=== PATIENT | female | born 1955 | race African-American/Black ===

== ENCOUNTER 2020-01-06 07:10 | Observation (INO) | payer MEDICARE, MEDICAID ==
[2020-01-04 11:45] LABS: BASOPHILS 0.5 % (0-2); EOSINOPHILS 1.2 % (0-7); HEMATOCRIT 33.1 % (36.0-48.0); HEMOGLOBIN 10.3 g/dL (12-16); IMMATURE GRANULOCYTES 0.2 % (0-5); LYMPHOCYTES 45.5 % (15-50); MCH 26.4 pg (26.0-34.0); MCHC 31.1 g/dL (31.0-37.0); MCV 84.9 fL (80.0-100.0); MEAN PLATELET VOLUME 8.8 fL (7.4-10.4); MONOCYTES 9.1 % (2-11); NEUTROPHILS 43.5 % (40-80); PLATELET COUNT 263 10x3/uL (130-400); WBC 6.6 10x3/uL (4.8-10.8)
[2020-01-04 11:57] LABS: ANION GAP 8.4 mmol/L (8-16); CALCIUM 9.9 mg/dL (8.5-10.1); CARBON DIOXIDE 32.5 mmol/L (21.0-32.0); CREATININE - SERUM 0.9 mg/dL (0.6-1.3); POTASSIUM - SERUM 3.9 mmol/L (3.5-5.1)
[2020-01-04 12:05] LABS: APTT 27.8 SECONDS (22.8-39.4); INR 1.02 (0.85-1.17); PROTIME 13.4 SECONDS (11.6-15.0)
[2020-01-06] VITALS (10 sets, daily range): BP systolic 120–158; BP diastolic 46–77; Ht 157.5 cm; Wt 83.6 kg
[~2020-01-06] VITALS: Ht 157.5 cm; Wt 83.6 kg
[~2020-01-06 07:10] MED LIST: CHLORTHALIDONE25 MG PO; HYDROCODON-ACE1 EA10 PO; PENICILLIN V P500 MG PO; TENORMIN100 MG PO; ZOCOR40 MG PO
--- NOTE | 2020-01-06 09:24 | NUR ---
0920-block per anesthesia. monitors established. alarms audible. o2 at 2l per nasal cannula. o2 sat 100% arouses easily. family member at bedside.
--- NOTE | 2020-01-06 12:56 | NUR ---
DRAINED BOTH CHANO DRAINS @1240 5CC IN #1 DRAIN AND 45CC IN #2 DRAIN WITH LARGE CLOT REMOVED
--- NOTE | 2020-01-06 13:30 | NUR ---
RECIEVED PATIENT FROM RECOVERY. VSS. O2 SAT 94 ON ROOM AIR.
--- NOTE | 2020-01-06 13:40 | NUR ---
PATIENT WITH CHANO DRAINS TIMES 2. MELISSA WRAP AROUND CHEST, UNABLE TO ASSESS DRESSING. NO DRAINAGE NOTED ON MELISSA WRAP.
--- NOTE | 2020-01-06 14:15 | NUR ---
ROOM CHECK. VSS. O2 SAT RANGES BETWEEN 92-95% ON ROOM AIR. EMPTIED CHANO DRAINS. HCANO #1 35CC OF RED BLOOD. NO CLOTS NOTED. CHANO# 2 20CC OF RED BLOOD. NO CLOTS NOTED. PATIENT STATES SHE IS COLD. WARM BLANKET PROVIDED TO PATIENT. DENIES FURTHER NEEDS. JUST WANTS TO SLEEP.
--- NOTE | 2020-01-06 14:25 | NUR ---
PATIENTS O2 RANGES 90-94 ON ROOM AIR. WHEN PATIENT SLEEPS WILL CONSISTENTALY STAY 90-92% ON ROOM AIR. 2L NC APPLIED TO PATIENT. PATIENT O2 SAT IS NOW STAYING AT 63%. WILL CONTINUE TO MONITOR. SCD'S ON BILATERALLY, CALL LIGHT IN REACH, SIDE RAILS UP X 2. PATIENT SLEEPING AT THIS TIME.
--- NOTE | 2020-01-06 15:01 | NUR ---
ROOM CHECK. PATIENT SLEEPING. EASY TO WAKE. O2 SAT UP TO 98% ON 2L NC. PATIENT DENIES NEEDS AT THIS TIME. JUST WANTS TO SLEEP. VSS. CALL LIGHT IN REACH, SIDE RAILS UP X2.
--- NOTE | 2020-01-06 15:32 | NUR ---
ROOM CHECK. PATIENT SLEEPING. EASY TO WAKE. WILL OPEN EYES AND TALK. PATIENT STATES SHE IS DOING GOOD AND DOES NOT NEED ANYTHING. DENIES PAIN. STATES IS JUST TIRED. O2 SAT 98% ON 2L NC. SCD'S ON BILAT, CALL LIGHT IN REACH, SIDE RAILS UP X2.
--- NOTE | 2020-01-06 16:00 | NUR ---
ROOM CHECK. PATIENT REQUESTING ICE WATER. ICE WATER PROVIDED. ASSISTED PAITENT WITH DRINKING. SHE DENIES PAIN AT THIS TIME. SCD'S ON BILATERAL, CALL LIGHT IN REACH, SIDE RAILS UP X2.
--- NOTE | 2020-01-06 16:40 | NUR ---
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 PATIENT UP WITH ASSIST X2. SHE DID NOT FEEL SHE COULD MAKE IT TO THE BATHROOM BEFORE SHE WENT. BEDSIDE COMMODE PROVIDED FOR PT. PATIENT VOIDED 600CC OF CLEAR YELLOW URINE. PATIENT BACK TO BED WITH ASSIST X1. PATIENT SITTING UP IN BED EATING AT THIS TIME. DENIES NEEDS. CALL LIGHT IN REACH, SIDE RAILS UP X2, SCD'S ON BILAT.
--- NOTE | 2020-01-06 17:20 | NUR ---
ROOM CHECK. PATIENT SITTING UP IN BED EATING. RATES PAIN 5/10. NARCO GIVEN PER ORDER. PATIENT STATES LEFT CHEST IS STARTING TO ACHE. DENIES NEEDS AT THIS TIME. SCD'S ON BILAT, CALL LIGHT IN REACH, SIDE RAILS UP X2.
--- NOTE | 2020-01-06 18:05 | NUR ---
ROOM CHECK. PATIENT SITTING UP IN BED. FINISHED EATING. RATES PAIN 3/10 STATES IT FEELS BETTER. VSS. INCENTIVE SPIROMETER GIVEN TO PATIENT AND EDUCATION PROVIDED. PATIENT ABLE TO GET TO 1250. GOAL SET AT 1500. PATIENT VERBALIZED UNDERSTANDING AND AGREEMENT. DENIES NEEDS AT THIS TIME. CALL LIGHT IN REACH, SIDE RAILS UP X2. SCD'S ON BILAT.
--- NOTE | 2020-01-06 18:32 | NUR ---
ROOM CHECK. CHANO DRAINS EMPTIED. CHANO #1 30 CC BLOODLY DRAINAGE , NO CLOTS NOTED. CHANO #2 20CC OF BLOODY DRAINAGE, NO CLOTS NOTED. PATIENT CURRETNLY SITTING UP IN BED TALKING ON THE PHONE. DENIES NEEDS AT THIS TIME. CALL LIGHT IN REACH, SIDE RAILS UP X2, SCD'S ON BILAT.
--- NOTE | 2020-01-06 19:00 | NUR ---
RECEIVED SHIFT REPORT FROM TONY HERNANDEZ RN
--- NOTE | 2020-01-06 19:10 | NUR ---
ASSESSMENT PER FLOW SHEET, VS OBTAINED, IV IN RIGHT HAND INTACT WITH NO REDNESS OR EDEMA INFUSING VIA PUMP LR AT 30ML/HR, CHEST DRESSING INTACT WITH NO DRAINAGE, CHANO DRAINS COMPRESSED, PT REPORTS FLATUS, PT INST ON AND DEMONSTRATED I.S. WITH GOOD EFFORT, SMALL SPLINT PILLOW PROVIDED, PT REPORTS FLATUS, PT INST TO USE CALL LIGHT WHEN NEEDING TO GET UP TO VOID, PT VERBALIZES UNDERSTANDING, RATES PAIN 2/10, STATES "NOTHING BAD, PT DENIES NEEDS AT THIS TIME, BED IN LOW POSITION, SIDE RAILS X 2, CALL LIGHT IN REACH
--- NOTE | 2020-01-06 19:29 | NUR ---
PT TALKING ON TELEPHONE, BAG OF NS HUNG PER MD ORDERS, SEE EMAR
--- NOTE | 2020-01-06 20:12 | NUR ---
PT TALKING ON PHONE, INFORMED PT THAT I WILL BE BACK AROUND 9PM TO ADM HER ZOCOR AND I WILL BRING PAIN MED WITH ME IF IT WAS DUE, PT STATES "THAT SOUNDS GOOD", PT DENIES NEEDS AT THIS TIME
--- NOTE | 2020-01-06 21:30 | NUR ---
PT UP TO BR WITH ASSISTANCE, GAIT STEADY, TO BEDSIDE COMMODE, PT VOIDED 500MLS OF CLEAR YELLOW URINE BY SELF WITH NO DIFFICULTY, PT BACK TO BED, CHANO DRAINS EMPTIED, SCD'S RECONNECTED AND WORKING PROPERLY
--- NOTE | 2020-01-06 21:40 | NUR ---
ADM 2100 MEDS PER MD ORDERS, SEE EMAR, PT REQUESTED AND SERVED [place] [employer] [place] [employer] [employer] [place] [employer], PT DENIES FURTHER NEEDS, BED IN LOW POSITION, SIDE RAILS X 2, CALL LIGHT IN REACH
--- NOTE | 2020-01-06 22:30 | NUR ---
PT WATCHING TV, REQUESTED AND HANDED BIBLE FROM BAG, PT RATES PAIN 2/10, DENIES FURTHER NEEDS
[2020-01-07 00:08] VITALS: BP 129/55
--- NOTE | 2020-01-07 00:08 | NUR ---
PT RESTING WITH EYES CLOSED, AROUSES TO SOFT VERBAL STIMULATION, VS OBTAINED, PT RATES PAIN 1-2/10, EMPTIED DRAIN 2, SCD'S CONTINUE ON AND WORKING PROPERLY, PT DENIES NEEDS AT THIS TIME, BED IN LOS POSITION, SIDE RAILS X 2, CALL LIGHT IN REACH
--- NOTE | 2020-01-07 02:21 | NUR ---
PT RESTING WITH EYES CLOSED, RESP QUIET, NO DISTRESS NOTED, LEFT UNDISTURBED AT THIS TIME, SCD'S CONTINUE ON AND WORKING PROPERLY, BED IN LOW POSITION, SIDE RAILS X 2, CALL LIGHT IN REACH
[2020-01-07 04:21] VITALS: BP 115/52
--- NOTE | 2020-01-07 04:21 | NUR ---
PT RESTING WITH EYES CLOSED, AROUSES TO SOFT VERBAL STIMULATION, VS OBTAINED, I&O'S COLLECTED, PT UP TO BEDSIDE COMMODE WITH ASSISTANCE, GAIT STEADY, VOIDED 250 MLS OF LITE YELLOW URINE BY SELF WITH NO DIFFICULTY, PT BACK TO BED, SCD'S RECONNECTED AND WORKING PROPERLY, PT RATES PAIN 12/09, ADM NORCO PO PER MD ORDERS, SEE EMAR, WITH FRESH H20, PT DENIES FURTHER NEEDS
--- NOTE | 2020-01-07 06:24 | NUR ---
PT AWAKE, LAB IN ROOM FOR AM BLOOD DRAW, PT RATES PAIN 5/10, STATES "IT'S COMING DOWN", PT DENIES NEEDS AT THIS TIME
[2020-01-07 06:54] LABS: BASOPHILS 0.1 % (0-2); EOSINOPHILS 0 % (0-7); HEMATOCRIT 27.3 % (36.0-48.0); HEMOGLOBIN 8.4 g/dL (12-16); IMMATURE GRANULOCYTES 0.3 % (0-5); LYMPHOCYTES 21.7 % (15-50); MCH 25.6 pg (26.0-34.0); MCHC 30.8 g/dL (31.0-37.0); MCV 83.2 fL (80.0-100.0); MEAN PLATELET VOLUME 9.4 fL (7.4-10.4); MONOCYTES 6.6 % (2-11); NEUTROPHILS 71.3 % (40-80); PLATELET COUNT 265 10x3/uL (130-400); RBC 3.28 10x6/uL (4.00-5.40); WBC 11.5 10x3/uL (4.8-10.8)
--- NOTE | 2020-01-07 07:00 | NUR ---
SHIFT REPORT TO DAY SHIFT
[2020-01-07 07:09] LABS: ANION GAP 13.7 mmol/L (8-16); CALCIUM 8.1 mg/dL (8.5-10.1); CARBON DIOXIDE 24.2 mmol/L (21.0-32.0); CREATININE - SERUM 1.2 mg/dL (0.6-1.3); POTASSIUM - SERUM 3.9 mmol/L (3.5-5.1)
[2020-01-07 08:39] VITALS: BP 113/54
--- NOTE | 2020-01-07 08:39 | NUR ---
SHIFT ASSESSMENT COMPLETED PER FLOWSHEET. VSS. REFUSED B/P MEDS D/T B/P 113/54. MELISSA WRAP REMAINS CLEAN, DRY, AND INTACT, NO DRAINAGE NOTED. DENIES PAIN AT THIS TIME. CHANO DRAINS BOTH EMPTIED AT THIS TIME, 5 MLS FROM DRAIN 1 AND 10 MLS FROM DRAIN 2 WITH SEROSANGUINOUS DRAINAGE NOTED. BOWELS SOUNDS PRESENT AND ACTIVE X 4 QUADRANTS, REPORTS THAT SHE IS PASSING FLATUS AND VOIDING WITHOUT DIFFICULTY. ORAL CARE DONE PER PT. POC DISCUSSED WITH PT, VERBALIZES UNDERSTANDING AND AGREEMENT DENIES QUESTIONS.
--- NOTE | 2020-01-07 09:37 | NUR ---
ROUNDS MADE. PT SITTING UP IN EDGE OF BED READING BOOK. DENIES PAIN. ICE WATER AND SPRITE PROVIDED PER REQUEST. BED IN LOW POSITION WITH SRUP X2. SCD'S OFF PER PT REQUEST. WILL CONTINUE TO MONITOR.
--- NOTE | 2020-01-07 10:54 | NUR ---
ROUNDS MADE. PT UP TO BR. DENIES NEED FOR ASSISTANCE. DENIES PAIN. WILL CONTINUE TO MONITOR.
[2020-01-07] MEDS ORDERED: HYDROCODON-ACE1 EA10 PO (11:40)
--- NOTE | 2020-01-07 11:45 | NUR ---
CALL LIGHT ANSWERED, PT UP TO BEDSIDE COMMODE AND VOIDS EASILY WITHOUT COMPLAINT. IV D/C AND REMOVED WITH CATH INTACT REQUESTED BY PT. PT STATES THAT DR TESFAYE TOLD HER SHE COULD GO HOME WHEN READY TODAY, SHE UNDERSTANDS THAT D/C TEACHING NEEDS TO BE GONE OVER AND IS CALLING HER DAUGHTER TO SEE WHEN SHE WILL BE AVAILABLE TO COME AND PICK HER UP.
--- NOTE | 2020-01-07 13:36 | NUR ---
REPORT TO Anastacia WAGNER RN
--- NOTE | 2020-01-07 13:44 | NUR ---
NORCO 10/325MG X1 TAB GIVEN PER PT REQUEST FOR PAIN RATED 7/10. PT DENIES FURTHER NEEDS.
--- NOTE | 2020-01-07 14:28 | NUR ---
PAIN REASSESSMENT COMPLETED. PT RATES PAIN 5/10 AND TOLERABLE AT THIS TIME. NO FURTHER NEEDS. LIGHTS DIMMED PER REQUEST.
--- NOTE | 2020-01-07 17:39 | NUR ---
ANTIBIOTICS GIVEN PER ORDERS. PT GETTING UP OOB TO USE BEDSIDE COMMODE. DENIES NEEDING ASSISTANCE WITH AMBULATION. DENIES FURTHER NEEDS.
--- NOTE | 2020-01-07 18:12 | NUR ---
PT SITTING UP IN BED WATCHING TELEVISION. STATES HER DAUGHTER SHOULD BE HERE AROUND 6:30 PM TO PICK HER UP. ADVISED WILL GET D/C PAPERWORK TOGETHER FOR HER.
--- NOTE | 2020-01-07 18:40 | NUR ---
D/C INST EXPLAINED, SIGNED AND WITNESSED. INSTRUCTION ON CHANO DRAIN GIVEN. PT FAMILIAR WITH DRAIN AND DEMONSTRATED HOW TO EMPTY IT. INSTRUCTED PT TO CALL DR TESFAYE'S OFFICE TOMORROW AM TO MAKE A FOLLOW UP APPT. UNDERSTANDING VERBALIZED. NO FURTHER QUESTIONS OR CONCERNS VOICED. PT AWAITING W/C TRANSPORT OFF UNIT.
--- NOTE | 2020-01-09 09:28 | OP ---
PATIENT NAME: ROEL SEBASTIAN MEDICAL RECORD: [id number] :57 LOCATION:[id number] ADMISSION DATE:01/06/20 SURGEON: RICKY TESFAYE MD DATE OF OPERATION: 01/06/2020 PREOPERATIVE DIAGNOSES: 1. Left breast cancer. 2. Hypertension. POSTOPERATIVE DIAGNOSES: 1. Left breast cancer. 2. Hypertension. PROCEDURE: Left modified radical mastectomy. SURGEON: Ricky Tesfaye MD REPORT OF PROCEDURE: The patient's left breast and axilla were prepped and draped in sterile fashion. An ovoid incision was made around the patient's breast transversely incorporating the nipple areolar complex. Using electrocautery, we came under the subcutaneous tissues and over the breast. We continued this dissection medially towards the sternum and inferiorly towards the rectus musculature superiorly towards the clavicle and laterally towards the axilla. Once we had the breast freed up from the overlying tissue, then we were able to take it off of the pectoral muscle using electrocautery. The breast was marked and sent off for permanent specimen. We then inspected the patient's axilla. The patient had some very large conglomerate of firm lymph nodes that were consistent with metastatic disease. I took out all grossly positive lymph nodes. Once these lymph nodes were excised and they were sent off for permanent specimen. We inspected the axilla and breast tissue and any bleeding that was found was treated with either 3-0 silk ties or electrocautery. I then irrigated out the wound bed using sterile water. A 10 flat CHANO drains times 2 were placed in the subcutaneous space. The patient had such a large amount of redundant breast tissue that I re-excise some of the breast tissue in order to make the incision more cosmetically appealing. This extra skin was then sent off for permanent specimen. The subcutaneous tissues were all reapproximated with interrupted 3-0 Vicryls and the skin was closed with redd. The drains were sutured into place with 3-0 nylons. The wound was then dressed appropriately with gauze and a pressure dressing. COMPLICATIONS: None. CONDITION: Stable. ANESTHESIA: General endotracheal and paravertebral block. BLOOD LOSS: 100 mL. TRANSINT:[id number] Voice Confirmation ID: [id number] DOCUMENT ID: [id number] OPERATIVE REPORT [id number] ROMULO,ROEL RICKY LOPEZ MD at 0928 CC: RITA GAO V [id number] DICTATION DATE: 01/06/20 1222 YOUTH DIRECTOR: 01/06/20 194 DIS IN 01/07/20 [facility] [address] [place] [address]
== END 2020-01-07 18:50 | disposition home or self-care (01) ==
LOC: D.OPS 07:10 → D.SDCHOLD 09:00 → EDSTATUS 10:15 → D.LD 12:19 → OBSVTIME 12:19 → D.LD 01-07 18:50
PROVIDERS: Anesthesiology; ADMIT Surgery; ATTEND Surgery
DX: C50.912 Malignant neoplasm of unspecified site of left female breast (principal); I10 Essential (primary) hypertension